=== PATIENT | female | born 1990 | race Caucasian/White ===

== ENCOUNTER 2017-02-16 08:05 | Emergency (ER) | payer BC ==
[2017-02-16 08:29] VITALS: BP 125/83
--- NOTE | 2017-02-16 08:56 | UC ---
Abdominal Pain Female HPI - HPI Summary HPI Summary: 26 yo female presents with progressively worse nausea and midepigastric / upper abd discomfort x 3 days. Today pain goes to the back as well. No fever. No runny nose, no cough. No diarrrhea. Denies urinary sx. LMP eraly OCt on bcps. No rash. No sign fam hx, no dm. - History of Current Complaint Chief Complaint: UCGI Stated Complaint: STOMACH COMPLAINT Time Seen by Provider: 02/16/17 08:14 Hx Obtained From: Patient Hx Last Menstrual Period: 01/26/17 Allergies/Adverse Reactions: Allergies Allergy/AdvReac Type Severity Reaction Status Date / Time No Known Allergies Allergy Verified 02/16/17 08:29 Home Medications: Home Medications Calcium Carbonate CHEW TAB* [Tums*] 1,000 mg PO ONCE PRN 02/16/17 [History Confirmed 02/16/17] Cholecalciferol [Vitamin D] 2,000 unit PO DAILY 02/16/17 [History Confirmed ] Multiple Vitamins W/ Minerals [Multivitamin Adults] 1 tab PO DAILY 02/16/17 [ History Confirmed 02/16/17] Norgestimate-Ethinyl Estradiol [Ortho-Cyclen] 1 tab PO QPM 02/16/17 [History Confirmed 02/16/17] PMH/Surg Hx/FS Hx/Imm Hx Previously Healthy: Yes - Surgical History Surgical History: None - Social History Alcohol Use: Occasionally Substance Use Type: None Smoking Status (MU): Never Smoked Tobacco Review of Systems Constitutional: Fatigue Skin: Negative Eyes: Negative ENT: Negative Respiratory: Negative Cardiovascular: Negative Gastrointestinal: Abdominal Pain, Other - nausea Genitourinary: Negative Motor: Negative Neurovascular: Negative Musculoskeletal: Negative Neurological: Negative Psychological: Negative Is Patient Immunocompromised?: No All Other Systems Reviewed And Are Negative: Yes Physical Exam Triage Information Reviewed: Yes Appearance: Well-Nourished - sitting up. able to lie flat Vital Signs: Initial Vital Signs Temp 97.9 F 02/16/17 08:22 Pulse 88 02/16/17 08:22 Resp 18 02/16/17 08:22 BP 125/83 02/16/17 08:22 Pulse Ox 98 02/16/17 08:22 Vital Signs Reviewed: Yes Eye Exam: Normal ENT Exam: Normal Neck exam: Normal Respiratory Exam: Normal Respiratory: Positive: Chest non-tender, Lungs clear, Normal breath sounds, No respiratory distress, No accessory muscle use Cardiovascular Exam: Normal Cardiovascular: Positive: RRR, No Murmur, Pulses Normal, Brisk Capillary Refill Abdominal Exam: Other Abdomen Description: Positive: Other: - tender mid epig. NO hsm. Pulse is audible. No r/g. Musculoskeletal Exam: Normal Neurological Exam: Normal Psychological Exam: Normal - conversing easily and appropriately Skin Exam: Normal Abd Pain Female Course/Dx - Course Course Of Treatment: D/w with pt s/sx, and recommend for further eval in ED. Urine dip not back as of 08:52am. 08:55 reviewed urine dip, reviewed with pt. (see ClipCard). Offered EMS, but declined. Will drive pov. Plans to go to [place] ED. Questions as posed answered to the best of my ability. - Differential Dx/Diagnosis Provider Diagnoses: abdminal pain. nausea Discharge - Discharge Plan Condition: Guarded Disposition: HOME Patient Education Materials: Abdominal Pain (ED), Acute Nausea and Vomiting (ED ) Additional Instructions: Go to the Emergency Department. Call 911 if problems en route.
== END 2017-02-16 09:08 | disposition home or self-care (01) ==
LOC: UCCORT 08:05
DX: R10.13 Epigastric pain (principal); R11.0 Nausea; Z32.02 Encounter for pregnancy test, result negative
CPT/HCPCS: 81003; 84702; 99202; G0463